=== PATIENT | female | born 2000 | race Caucasian/White ===

== ENCOUNTER 2023-08-25 17:19 | Emergency (ER) | payer OTHER ==
--- NOTE | 2023-08-25 18:10 | ED ---
Abdominal Pain HPI - General Source: patient Mode of arrival: ambulatory Limitations: no limitations <Michelle Serna - Last Filed: 08/25/23 18:09> <Madelyn Soto - Last Filed: 08/25/23 23:43> - General Stated Complaint: abd pain, vomiting Time Seen by Provider: 08/25/23 18:09 - History of Present Illness Initial Comments: The patient is a 23-year-old female is otherwise healthy presents emergency room with complaints of right lower quadrant abdominal pain and fever. Denies any concern for an STD or vaginal discharge. Patient believes she has an iodine ALLERGY due to having an ALLERGIC reaction to eating excessive amounts of fish but has never had contrast dye. (Michelle Serna) 23-year-old female presenting with chief complaint of right lower quadrant pain. Patient states that this pain started yesterday, it is a dull aching pain. She states that today she started experiencing some nausea and vomiting and felt feverish. No history of abdominal surgeries. She denies any vaginal bleeding or discharge. She is sexually active and uses condoms, she does not have any concern for STDs. She states she has not been having diarrhea but she has been having bowel movements more frequently. No dysuria or hematuria. No flank pain. (Madelyn Soto) - Related Data Home Medications Medication Instructions Recorded Confirmed No Known Home Medications 06/19/15 06/19/15 Allergies Allergy/AdvReac Type Severity Reaction Status Date / Time iodine Allergy Anaphylaxis Verified 08/25/23 18:02 Review of Systems ROS Other: All systems not noted in ROS Statement are negative. <Michelle Serna - Last Filed: 08/25/23 18:09> ROS Other: All systems not noted in ROS Statement are negative. <Madelyn Soto - Last Filed: 08/25/23 23:43> ROS Statement: Those systems with pertinent positive or pertinent negative responses have been documented in the HPI. Past Medical History Past Medical History: No Reported History History of Any Multi-Drug Resistant Organisms: None Reported Past Surgical History: No Surgical Hx Reported Past Psychological History: No Psychological Hx Reported Smoking Status: Vaper Past Alcohol Use History: None Reported, Rare Past Drug Use History: None Reported, Marijuana <Michelle Serna - Last Filed: 08/25/23 18:09> General Exam Limitations: no limitations <Michelle Serna - Last Filed: 08/25/23 18:09> Limitations: no limitations General appearance: alert, in no apparent distress Head exam: Present: atraumatic, normocephalic Eye exam: Present: normal appearance Neck exam: Present: normal inspection Respiratory exam: Present: normal lung sounds bilaterally. Absent: respiratory distress, wheezes, rales, rhonchi, stridor Cardiovascular Exam: Present: regular rate, normal rhythm, normal heart sounds. Absent: systolic murmur, diastolic murmur, rubs, gallop, clicks GI/Abdominal exam: Present: soft, tenderness (Patient admitted to some pressure in the right lower quadrant, mild). Absent: distended, guarding, rebound, rigid External exam: Present: normal external exam Speculum exam: Present: normal speculum exam By manual exam: Present: normal by manual exam Neurological exam: Present: alert, oriented X3 Psychiatric exam: Present: normal affect, normal mood Skin exam: Present: warm, dry <Madelyn Soto - Last Filed: 08/25/23 23:43> - General Exam Comments Initial Comments: Visual Physical Exam Vital signs reviewed General: Well-appearing, nontoxic, no acute distress. Head: Normocephalic, atraumatic Eyes: PERRLA, EOMI ENT: Airway patent Chest: Nonlabored breathing Skin: No visual rash, normal skin tone Neuro: Alert and oriented 3 Musculoskeletal: No gross abnormalities (Michelle Serna) Course Vital Signs 08/25/23 08/25/23 17:57 22:12 Temperature 99 F Pulse Rate 86 72 Respiratory 18 16 Rate Blood Pressure 154/91 107/74 O2 Sat by Pulse 98 100 Oximetry Medical Decision Making <Michelle Serna - Last Filed: 08/25/23 18:09> - Lab Data Result diagrams: 08/25/23 19:08 08/25/23 19:08 <Madelyn Soto - Last Filed: 08/25/23 23:43> - Medical Decision Making Quick note portion completed by myself, electronically signed Michelle Serna PAC (Michelle Serna) Was pt. sent in by a medical professional or institution (, PA, MECHANICAL PIPING DESIGNER, urgent care, hospital, or [facility]...) When possible be specific @ -No Did you speak to anyone other than the patient for history (EMS, parent, family, police, friend...)? What history was obtained from this source @ -No Did you review nursing and triage notes (agree or disagree)? Why? @ -I reviewed and agree with nursing and triage notes Were old charts reviewed (outside hosp., previous admission, EMS record, old EKG, old radiological studies, urgent care reports/EKG's, [facility] records)? Report findings @ -No old charts were reviewed Differential Diagnosis (chest pain, altered mental status, abdominal pain women, abdominal pain men, vaginal bleeding, weakness, fever, dyspnea, syncope, headache, dizziness, GI bleed, back pain, seizure, CVA, palpatations, mental health, musculoskeletal)? @ -MDM Differential Abdominal Pain Women: Appendicitis, Cholecystitis, diverticulosis, ischemic bowel, pancreatitis, hepatitis, UTI, gastroenteritis, AAA, incarcerated hernia, bowel obstruction, constipation, inflammatory bowel, hepatitis, peptic ulcer disease, splenic infarction, perforated viscus, vulvitis, ovarian torsion, PID, kidney stone, placenta abruption... This is not meant to be an all-inclusive list EKG interpreted by me (3pts min.). @ -As above X-rays interpreted by me (1pt min.). @ -None done CT interpreted by me (1pt min.). @ -CT shows prominent size of the right ovary, given the appendix is normal in there is no obstructive uropathy consider dedicated pelvic transvaginal ultrasound U/S interpreted by me (1pt. min.). @ -Ultrasound shows satisfactory blood flow to right ovary is identified. Small amount of free fluid in the pelvic cul-de-sac redemonstrated which is nonspecific. No acute findings otherwise are seen What testing was considered but not performed or refused? (CT, X-rays, U/S, lab s)? Why? @ -None What meds were considered but not given or refused? Why? @ -None Did you discuss the management of the patient with other professionals (professionals i.e. , PA, MECHANICAL PIPING DESIGNER, lab, RT, psych nurse, social work associate, health program manager, teacher, supply requirements officer, case coordinator)? Give summary @ -No Was smoking cessation discussed for >3mins.? @ -No Was critical care preformed (if so, how long)? @ -No Were there social determinants of health that impacted care today? How? (Homelessness, low income, unemployed, alcoholism, drug addiction, transportation, low edu. Level, literacy, decrease access to med. care, half-way, rehab)? @ -No Was there de-escalation of care discussed even if they declined (Discuss DNR or withdrawal of care, Hospice)? DNR status @ -No What co-morbidities impacted this encounter? (DM, HTN, Smoking, COPD, CAD, Cancer, CVA, ARF, Chemo, Hep., AIDS, mental health diagnosis, sleep apnea, morbid obesity)? @ -None Was patient admitted / discharged? Hospital course, mention meds given and route, prescriptions, significant lab abnormalities, going to OR and other pertinent info. @ -23-year-old female presenting with chief complaint of right lower quadrant pain that started yesterday. Patient started having nausea vomiting and subjective fever today. Workup is initiated by triage. WBC 15.1. hCG quantitative less than 2.4. Urine shows no infectious process or bleeding. She is negative for influenza, RSV, and COVID. Patient is later brought back to a room with a history and physical exam are conducted. She has mild pressure to the right lower quadrant, otherwise abdominal exam is unremarkable. Normal speculum and bimanual exam. CT abdomen and pelvis shows no appendicitis or obstructive uropathy, the right ovary does appear larger than the left. Ultrasound was obtained which shows no evidence of torsion or other acute process. Right ovary still appears larger than the left. On reassessment patient is resting comfortably. Throughout her course in the ED I offered pain and nausea medication and multiple occasions, however the patient states that her symptoms were minor and did not want any medication. She is educated on today's findings. She is instructed to follow-up with BLEACH MACHINE OPERATOR. Discharged home. Follow-up with PCP. Report back to ER with any new or worsening symptoms. Discussed return parameters and answered all questions. Patient conveyed verbal understanding and agreed to the plan. I discussed this case in detail with my attending Dr. Esposito Undiagnosed new problem with uncertain prognosis? @ -No Drug Therapy requiring intensive monitoring for toxicity (Heparin, Nitro, Insulin, Cardizem)? @ -No Were any procedures done? @ -No Diagnosis/symptom? @ -Pelvic pain Acute, or Chronic, or Acute on Chronic? @ -Acute Uncomplicated (without systemic symptoms) or Complicated (systemic symptoms)? @ -Uncomplicated Side effects of treatment? @ -No Exacerbation, Progression, or Severe Exacerbation? @ -No Poses a threat to life or bodily function? How? (Chest pain, USA, MA, pneumonia, PE, COPD, DKA, ARF, appy, cholecystitis, CVA, Diverticulitis, Homicidal, Suicidal, threat to staff... and all critical care pts) @ -Unlikely (Madelyn Soto) - Lab Data Lab Results 08/25/23 08/25/23 08/25/23 Range/Units 19:08 19:08 19:08 WBC 15.1 H (3.8-10.6) k/uL RBC 4.76 (3.80-5.40) m/uL Hgb 15.0 (11.4-16.0) gm/dL Hct 43.0 (34.0-46.0) % MCV 90.3 (80.0-100.0) fL MCH 31.6 (25.0-35.0) pg MCHC 35.0 (31.0-37.0) g/dL RDW 12.0 (11.5-15.5) % Plt Count 313 (150-450) k/uL MPV 8.0 Neutrophils % 76 % Lymphocytes % 16 % Monocytes % 6 % Eosinophils % 1 % Basophils % 0 % Neutrophils # 11.5 H (1.3-7.7) k/uL Lymphocytes # 2.4 (1.0-4.8) k/uL Monocytes # 0.9 (0-1.0) k/uL Eosinophils # 0.1 (0-0.7) k/uL Basophils # 0.1 (0-0.2) k/uL Sodium 139 (137-145) mmol/L Potassium 3.6 (3.5-5.1) mmol/L Chloride 109 H (98-107) mmol/L Carbon Dioxide 21 L (22-30) mmol/L Anion Gap 9 mmol/L BUN 11 (7-17) mg/dL Creatinine 0.60 (0.52-1.04) mg/dL Est GFR (CKD-EPI)AfAm >90 (>60 ml/min/1.73 sqM) Est GFR (CKD-EPI)NonAf >90 (>60 ml/min/1.73 sqM) Glucose 97 (74-99) mg/dL Calcium 9.9 (8.4-10.2) mg/dL Total Bilirubin 0.8 (0.2-1.3) mg/dL AST 25 (14-36) U/L ALT 14 (4-34) U/L Alkaline Phosphatase 75 (38-126) U/L Total Protein 7.3 (6.3-8.2) g/dL Albumin 4.5 (3.5-5.0) g/dL Lipase 174 (23-300) U/L HCG, Quant <2.4 mIU/mL Urine Color Urine Appearance (Clear) Urine pH (5.0-8.0) Ur Specific [place] (1.001-1.035) Urine Protein (Negative) Urine Glucose (UA) (Negative) Urine Ketones (Negative) Urine Blood (Negative) Urine Nitrite (Negative) Urine Bilirubin (Negative) Urine Urobilinogen (<2.0) mg/dL Ur Leukocyte Esterase (Negative) Influenza Type A (PCR) Not Detected (Not Detectd) Influenza Type B (PCR) Not Detected (Not Detectd) RSV (PCR) Not Detected (Not Detectd) SARS-CoV-2 (PCR) Not Detected (Not Detectd) 08/25/23 Range/Units 19:16 WBC (3.8-10.6) k/uL RBC (3.80-5.40) m/uL Hgb (11.4-16.0) gm/dL Hct (34.0-46.0) % MCV (80.0-100.0) fL MCH (25.0-35.0) pg MCHC (31.0-37.0) g/dL RDW (11.5-15.5) % Plt Count (150-450) k/uL MPV Neutrophils % % Lymphocytes % % Monocytes % % Eosinophils % % Basophils % % Neutrophils # (1.3-7.7) k/uL Lymphocytes # (1.0-4.8) k/uL Monocytes # (0-1.0) k/uL Eosinophils # (0-0.7) k/uL Basophils # (0-0.2) k/uL Sodium (137-145) mmol/L Potassium (3.5-5.1) mmol/L Chloride (98-107) mmol/L Carbon Dioxide (22-30) mmol/L Anion Gap mmol/L BUN (7-17) mg/dL Creatinine (0.52-1.04) mg/dL Est GFR (CKD-EPI)AfAm (>60 ml/min/1.73 sqM) Est GFR (CKD-EPI)NonAf (>60 ml/min/1.73 sqM) Glucose (74-99) mg/dL Calcium (8.4-10.2) mg/dL Total Bilirubin (0.2-1.3) mg/dL AST (14-36) U/L ALT (4-34) U/L Alkaline Phosphatase (38-126) U/L Total Protein (6.3-8.2) g/dL Albumin (3.5-5.0) g/dL Lipase (23-300) U/L HCG, Quant mIU/mL Urine Color Colorless Urine Appearance Clear (Clear) Urine pH 6.0 (5.0-8.0) Ur Specific [place] 1.011 (1.001-1.035) Urine Protein Negative (Negative) Urine Glucose (UA) Negative (Negative) Urine Ketones Negative (Negative) Urine Blood Negative (Negative) Urine Nitrite Negative (Negative) Urine Bilirubin Negative (Negative) Urine Urobilinogen <2.0 (<2.0) mg/dL Ur Leukocyte Esterase Negative (Negative) Influenza Type A (PCR) (Not Detectd) Influenza Type B (PCR) (Not Detectd) RSV (PCR) (Not Detectd) SARS-CoV-2 (PCR) (Not Detectd) Disposition <Michelle Serna - Last Filed: 08/25/23 18:09> Is patient prescribed a controlled substance at d/c from ED?: No Time of Disposition: 23:13 <Madelyn Soto - Last Filed: 08/25/23 23:43> Clinical Impression: Pelvic pain Disposition: HOME SELF-CARE Condition: Good Instructions (If sedation given, give patient instructions): Pelvic Pain in Women (ED) Additional Instructions: Follow-up with BLEACH MACHINE OPERATOR. Report back to ER with any new or worsening symptoms. Referrals: Miguel Busby MD [Primary Care Provider] - 1-2 days Clari Schwartz DO [Doctor of Osteopathic Medicine] - 1-2 days
[2023-08-25 19:22] LABS: Basophils # (A) 0.1 k/uL (0-0.2); Basophils % (A) 0 %; Eosinophils # (A) 0.1 k/uL (0-0.7); Eosinophils % (A) 1 %; Lymphocytes # (A) 2.4 k/uL (1.0-4.8); Lymphocytes % (A) 16 %; MCH 31.6 pg (25.0-35.0); MCV 90.3 fL (80.0-100.0); Monocytes # (A) 0.9 k/uL (0-1.0); Monocytes % (A) 6 %; Neutrophils # (A) 11.5 k/uL (1.3-7.7); Neutrophils % (A) 76 %; Platelet Count 313 k/uL (150-450); RBC 4.76 m/uL (3.80-5.40); WBC 15.1 k/uL (3.8-10.6)
[2023-08-25 19:35] LABS: Appearance,Urine Clear (Clear); Bilirubin,Urine Negative (Negative); Blood,Urine Negative (Negative); Color,Urine Colorless; Glucose,Urine (UA) Negative (Negative); Ketones,Urine Negative (Negative); Leukocyte Esterase,Urine Negative (Negative); Nitrite,Urine Negative (Negative); Protein,Urine Negative (Negative); Specific Gravity,Urine 1.011 (1.001-1.035); Urobilinogen,Urine <2.0 mg/dL (<2.0)
[2023-08-25 19:48] LABS: ALT 14 U/L (4-34); AST 25 U/L (14-36); African American GFR (CKD) >90 (>60 ml/min/1.73 sqM); Albumin 4.5 g/dL (3.5-5.0); Alkaline Phosphatase 75 U/L (38-126); Anion Gap 9 mmol/L; Blood Urea Nitrogen 11 mg/dL (7-17); Calcium 9.9 mg/dL (8.4-10.2); Carbon Dioxide 21 mmol/L (22-30); Chloride 109 mmol/L (98-107); Glucose 97 mg/dL (74-99); Lipase 174 U/L (23-300); Non-African American GFR(CKD) >90 (>60 ml/min/1.73 sqM); Potassium 3.6 mmol/L (3.5-5.1); Sodium 139 mmol/L (137-145); Total Bilirubin 0.8 mg/dL (0.2-1.3); Total Protein 7.3 g/dL (6.3-8.2)
[2023-08-25 20:15] LABS: HCG,Quantitative Serum <2.4 mIU/mL
[2023-08-25] MEDS: SODIUM CHLORIDE 0.9% 1,000 ML IV ONE (20:53)
[2023-08-25] MEDS: methylPREDNISolone SOD SUCCI 125 MG/2 ML VIAL IV ONE (20:53)
[2023-08-25] MEDS: FAMOTIDINE 20 MG/2 ML VIAL IV STA (20:54)
[2023-08-25] MEDS: diphenhydrAMINE 50 MG/ML 1 ML VIAL IVP STA (20:55)
--- NOTE | 2023-08-25 21:59 | CT ---
EXAMINATION TYPE: CT abdomen pelvis w con CT DLP: 483.7 mGycm, Automated exposure control for dose reduction was used. DATE OF EXAM: 08/25/2023 9:26 PM COMPARISON: None CLINICAL INDICATION:Female, 23 years old with history of RLQ pain; RLQ abdominal pain x 1 day TECHNIQUE: Axial CT abdomen pelvis w con;Sagittal and coronal reformats were created on a separate w orkstation. Contrast used:100ml mL of Isovue 300 with IV Contrast, (none if empty) Oral contrast used: without Oral Contrast (none if empty) FINDINGS: LOWER CHEST: Unremarkable ABDOMEN LIVER: Unremarkable GALLBLADDER AND BILE DUCTS: Unremarkable. PANCREAS: Unremarkable. SPLEEN: Unremarkable. ADRENAL GLANDS: Unremarkable. KIDNEYS AND URETERS: No evidence of hydronephrosis or renal calculus. The ureters are unremarkable. PELVIS BLADDER: Unremarkable REPRODUCTIVE: Arcuate morphology to the endometrium suggested.r the right ovary appears larger compar ed to the left. What is thought to represent the right ovary appears prominent in size. ABDOMEN & PELVIS STOMACH AND BOWEL: No evidence of bowel obstruction. The appendix is visualized and normal. PERITONEUM/RETROPERITONEUM: No evidence of pneumoperitoneum or free fluid. VASCULATURE: No evidence of aortic aneurysm. MUSCULOSKELETAL: No acute osseous abnormalities LYMPH NODES: No gross evidence for lymphadenopathy. SOFT TISSUE/ABDOMINAL WALL: Unremarkable IMPRESSION: Prominent size of the right ovary, given the appendix is normal and is no obstructive uropathy. Consi мария dedicated pelvic transvaginal ultrasound.
[2023-08-25 22:17] VITALS: RESP 16
--- NOTE | 2023-08-25 22:46 | US ---
EXAMINATION TYPE: US pelvic complete DATE OF EXAM: 08/25/2023 COMPARISON: CT: Today CLINICAL INDICATION: Female, 23 years old with history of R pelvic pain; R sided pelvic pain x 1 day. TECHNIQUE: . Transabdominal sonographic images of the pelvis were acquired. Pt refused transvaginal exam Date of LMP: 08/12/23 EXAM MEASUREMENTS: Uterus: 7.2 x 5.2 x 3.8 cm Endometrial Stripe: 0.9 cm Right Ovary: 4.3 x 3.5 x 3.0 cm Left Ovary: 2.7 x 2.3 x 2.0 cm 1. Uterus: Anteverted wnl 2. Endometrium: wnl 3. Right Ovary: Appears larger than the left ovary, however still has good blood flow and no obvious mass. Slightly limited due to bowel gas 4. Left Ovary: wnl Spectral, color and waveform doppler imaging shows good arterial and venous flow within the ovaries ; 5. Bilateral Adnexa: wnl 6. Posterior cul-de-sac: Free fluid seen IMPRESSION: Satisfactory blood flow to right ovary is identified. Small amount of free fluid in pelvi c cul-de-sac redemonstrated which is nonspecific. No acute findings otherwise are seen.
[2023-08-26 00:14] VITALS: BP 111/73; PULSE 74; TEMP 98.4
== END 2023-08-25 23:56 | disposition home or self-care (01) ==
LOC: EC 17:19
DX: R10.31 Right lower quadrant pain (principal); F17.290 Nicotine dependence, other tobacco product, uncomplicated; Z91.041 Radiographic dye allergy status; Z20.822 Contact with and (suspected) exposure to COVID-19
CPT/HCPCS: 36415; 80053; 83690; 85025; 81003; 84702; 87636; 93975; 76856; 74177; 99284; 96374; 96375 ×2; 96361; J1200; J2930; J3490; Q9967

== ENCOUNTER → 2024-03-01 | Outpatient (CLI) | payer OTHER ==
--- NOTE | 2024-03-01 14:56 | US ---
EXAMINATION TYPE: US venous doppler duplex LE RT DATE OF EXAM: 03/01/2024 2:34 PM COMPARISON: NONE CLINICAL INDICATION: Female, 23 years old with history of R22.41 LOCALIZED SWELLING, MASS AND LUMP, R IGHT LO; right pop redness and warmth SIDE PERFORMED: Right TECHNIQUE: The lower extremity deep venous system is examined utilizing real time linear array sonog deniz with graded compression, doppler sonography and color-flow sonography. VESSELS IMAGED: Common Femoral Vein Deep Femoral Vein Greater Saphenous Vein * Femoral Vein Popliteal Vein Small Saphenous Vein * Proximal Calf Veins (* superficial vessels) Right Leg: Negative for DVT IMPRESSION: Grayscale, color doppler, spectral doppler imaging performed of the deep veins of the lo wer extremities. There is normal flow, compressibility, vascular waveforms.
== END | disposition home or self-care (01) ==
LOC: RADUSWWP 14:16
PROVIDERS: ATTEND Obstetrics & Gynecology
DX: R22.41 Localized swelling, mass and lump, right lower limb (principal); M79.661 Pain in right lower leg

== ENCOUNTER 2024-05-10 15:30 | Emergency (ER) | payer OTHER ==
[2024-05-10 15:43] VITALS: TEMP 98.2
[2024-05-10] MEDS: ONDANSETRON 4 MG/2 ML VIAL IVP STA (16:13)
--- NOTE | 2024-05-10 16:21 | ED ---
General Adult HPI - General Chief complaint: Shortness of Breath Stated complaint: SOB, chest pain, 34wks preg Time Seen by Provider: 05/10/24 15:50 Source: patient, RN notes reviewed, old records reviewed Mode of arrival: wheelchair Limitations: no limitations - History of Present Illness Initial comments: Is a 24-year-old female who is 34 weeks . Patient comes in today because she states about 40 minutes prior to arrival started having bilateral shoulder pain. Even though the triage note says left-sided patient states states equally both sides and both shoulders. Patient states she then started having some tingling in both of her fingers. Patient states She then started to experience some mild back pain and now she has some weird feeling in her chest. States the symptoms in the shoulder and back appear to be worsened with movement or taking a deep breath. But it is not pain. Patient states she also short of breath a little. Patient denies any injury or trauma. Patient has any swelling to the legs or calf tenderness. Patient also states she feels weak in her legs as well. Patient states she is feeling movement of her baby but not as much as she has in the past. Patient states she has multiple family members with blood clots. Plan. - Related Data Home Medications Medication Instructions Recorded Confirmed Ferrous Sulfate [Feosol] 325 mg PO W/SUPPER 05/10/24 05/10/24 Omeprazole 20 mg PO DAILY 05/10/24 05/10/24 Bpl-Odjn-Czcmm Acid 1 cap PO DAILY 05/10/24 05/10/24 [-U Capsule (formulary)] Allergies Allergy/AdvReac Type Severity Reaction Status Date / Time iodine Allergy Anaphylaxis Verified 05/10/24 16:31 Review of Systems ROS Statement: Those systems with pertinent positive or pertinent negative responses have been documented in the HPI. ROS Other: All systems not noted in ROS Statement are negative. Past Medical History Past Medical History: No Reported History History of Any Multi-Drug Resistant Organisms: None Reported Past Surgical History: No Surgical Hx Reported Past Psychological History: No Psychological Hx Reported Smoking Status: Vaper Past Alcohol Use History: None Reported, Rare Past Drug Use History: None Reported, Marijuana General Exam - General Exam Comments Initial Comments: GENERAL: Patient is well-developed and well-nourished. Patient is nontoxic and well- hydrated and is in mild distress. ENT: Neck is soft and supple. No significant lymphadenopathy is noted. Oropharynx is clear. Moist mucous membranes. Neck has full range of motion without elic iting any pain. EYES: The sclera were anicteric and conjunctiva were pink and moist. Extraocular movements were intact and pupils were equal round and reactive to light. Eyelids were unremarkable. PULMONARY: Unlabored respirations. Good breath sounds bilaterally. No audible rales rhonchi or wheezing was noted. CARDIOVASCULAR: There is a regular rate and rhythm without any murmurs gallops or rubs. Patient's heart rate was 95 when I listen to her ABDOMEN: abdomen SKIN: Skin is clear with no lesions or rashes and otherwise unremarkable. NEUROLOGIC: Patient is alert and oriented x3. Cranial nerves II through XII are grossly intact. Motor and sensory are also intact. Normal speech, volume and content. Symmetrical smile. MUSCULOSKELETAL: Normal extremities with adequate strength and full range of motion. No lower extremity swelling or edema. No calf tenderness. LYMPHATICS: No significant lymphadenopathy is noted PSYCHIATRIC: Patient is a very anxious. Limitations: no limitations Course Vital Signs 05/10/24 05/10/24 05/10/24 15:39 17:00 18:42 Temperature 98.2 F Pulse Rate 97 77 75 Respiratory 20 18 18 Rate Blood Pressure 144/73 130/81 118/62 O2 Sat by Pulse 98 97 99 Oximetry Medical Decision Making - Medical Decision Making EKG is interpreted by myself. EKG shows sinus tachycardia at 106 bpm WV was 120 QRS is 84 QT interval 327 QTc is 389. Patient's EKG shows some flipped T waves in 3 and aVF as well as some flipped T waves in V1 through V4. Was pt. sent in by a medical professional or institution (, PA, [facility], urgent care, hospital, or skilled nursing...) When possible be specific @ -No Did you speak to anyone other than the patient for history (EMS, parent, family, police, friend...)? What history was obtained from this source @ -No Did you review nursing and triage notes (agree or disagree)? Why? @ -I reviewed and agree with nursing and triage notes Were old charts reviewed (outside hosp., previous admission, EMS record, old EKG, old radiological studies, urgent care reports/EKG's, skilled nursing records)? Report findings @ -No old charts were reviewed Differential Diagnosis? @ -Differential Dyspnea: Coronary syndrome, arrhythmia, tamponade, asthma, COPD, pulmonary embolism, pneumonia, pneumothorax, pulmonary effusion, anaphylaxis, diabetic ketoacidosis, flailed chest, pulmonary contusion, diaphragmatic rupture, anemia, neuromuscular, this is not meant to be an all-inclusive list. EKG interpreted by me (3pts min.). @ -As above X-rays interpreted by me (1pt min.). @ -Chest x-ray shows no acute abnormality CT interpreted by me (1pt min.). @ -CT scan shows no pulmonary embolism no acute abnormality U/S interpreted by me (1pt. min.). @ -None done What testing was considered but not performed or refused? (CT, X-rays, U/S, labs)? Why? @ -None What meds were considered but not given or refused? Why? @ -None Did you discuss the management of the patient with other professionals (professionals i.e. , PA, [facility], lab, RT, psych nurse, social and political studies professor, sports lawyer, teacher, public service officer, rehabilitation case coordinator)? Give summary @ -Spoke with Dr. Rai and he did not seem concerned about the hemoglobin being 9.9 and we will follow-up the patient as an outpatient Was smoking cessation discussed for >3mins.? @ -No Was critical care preformed (if so, how long)? @ -No Were there social determinants of health that impacted care today? How? (Homelessness, low income, unemployed, alcoholism, drug addiction, transportation, low edu. Level, literacy, decrease access to med. care, nursing home, re hab)? @ -No Was there de-escalation of care discussed even if they declined (Discuss DNR or withdrawal of care, Hospice)? DNR status @ -No What co-morbidities impacted this encounter? (DM, HTN, Smoking, COPD, CAD, Cancer, CVA, ARF, Chemo, Hep., AIDS, mental health diagnosis, sleep apnea, morbid obesity)? @ -None Was patient admitted / discharged? Hospital course, mention meds given and route, prescriptions, significant lab abnormalities, going to OR and other pertinent info. @ -Patient states that the discomfort she had in her shoulders and back seems to be motion use. Patient states if she moves twists or takes a deep breath it seems to cause the pain. Patient states that she feels much better now than she did when she came in. CT scan was ordered because the patient has EKG findings of right heart strain but no old EKG is there to compare to. Lab work showed hemoglobin 9.[address] scan showed no pulmonary embolism. Patient will follow-up as an outpatient and is told to return if there are any new or worsening symptoms. Patient oxygenation was in the high 90s throughout her visit. Undiagnosed new problem with uncertain prognosis? @ -No Drug Therapy requiring intensive monitoring for toxicity (Heparin, Nitro, Insulin, Cardizem)? @ -No Were any procedures done? @ -No Diagnosis/symptom? @ -Back and shoulder pain Acute, or Chronic, or Acute on Chronic? @ -Acute Uncomplicated (without systemic symptoms) or Complicated (systemic symptoms)? @ -Complicated Side effects of treatment? @ -No Exacerbation, Progression, or Severe Exacerbation? @ -No Poses a threat to life or bodily function? How? (Chest pain, USA, NC, pneumonia, PE, COPD, DKA, ARF, appy, cholecystitis, CVA, Diverticulitis, Homicidal, Suicidal, threat to staff... and all critical care pts) @ -No - Lab Data Result diagrams: 05/10/24 16:16 05/10/24 16:16 Lab Results 05/10/24 05/10/24 05/10/24 Range/Units 16:16 16:16 16:16 WBC 11.8 H (3.8-10.6) k/uL RBC 3.69 L (3.80-5.40) m/uL Hgb 9.9 L (11.4-16.0) gm/dL Hct 29.9 L (34.0-46.0) % MCV 81.2 (80.0-100.0) fL MCH 26.8 (25.0-35.0) pg MCHC 33.0 (31.0-37.0) g/dL RDW 14.8 (11.5-15.5) % Plt Count 188 (150-450) k/uL MPV 9.4 Neutrophils % 74 % Lymphocytes % 17 % Monocytes % 6 % Eosinophils % 1 % Basophils % 0 % Neutrophils # 8.7 H (1.3-7.7) k/uL Lymphocytes # 2.0 (1.0-4.8) k/uL Monocytes # 0.7 (0-1.0) k/uL Eosinophils # 0.1 (0-0.7) k/uL Basophils # 0.0 (0-0.2) k/uL Hypochromasia Moderate Poikilocytosis Slight D-Dimer 1.56 H (<0.60) mg/L FEU Sodium 135 L (137-145) mmol/L Potassium 3.5 (3.5-5.1) mmol/L Chloride 112 H (98-107) mmol/L Carbon Dioxide 14 L (22-30) mmol/L Anion Gap 9 mmol/L BUN 3 L (7-17) mg/dL Creatinine 0.44 L (0.52-1.04) mg/dL Est GFR (CKD-EPI)AfAm >90 (>60 ml/min/1.73 sqM) Est GFR (CKD-EPI)NonAf >90 (>60 ml/min/1.73 sqM) Glucose 115 H (74-99) mg/dL Plasma Lactic Acid Kennedy (0.7-2.0) mmol/L Calcium 8.5 (8.4-10.2) mg/dL Magnesium 1.6 (1.6-2.3) mg/dL Total Bilirubin 0.7 (0.2-1.3) mg/dL AST 24 (14-36) U/L ALT 16 (4-34) U/L Alkaline Phosphatase 204 H (38-126) U/L Troponin I (0.000-0.034) ng/mL Total Protein 6.0 L (6.3-8.2) g/dL Albumin 3.2 L (3.5-5.0) g/dL 05/10/24 05/10/24 Range/Units 16:16 16:16 WBC (3.8-10.6) k/uL RBC (3.80-5.40) m/uL Hgb (11.4-16.0) gm/dL Hct (34.0-46.0) % MCV (80.0-100.0) fL MCH (25.0-35.0) pg MCHC (31.0-37.0) g/dL RDW (11.5-15.5) % Plt Count (150-450) k/uL MPV Neutrophils % % Lymphocytes % % Monocytes % % Eosinophils % % Basophils % % Neutrophils # (1.3-7.7) k/uL Lymphocytes # (1.0-4.8) k/uL Monocytes # (0-1.0) k/uL Eosinophils # (0-0.7) k/uL Basophils # (0-0.2) k/uL Hypochromasia Poikilocytosis D-Dimer (<0.60) mg/L FEU Sodium (137-145) mmol/L Potassium (3.5-5.1) mmol/L Chloride (98-107) mmol/L Carbon Dioxide (22-30) mmol/L Anion Gap mmol/L BUN (7-17) mg/dL Creatinine (0.52-1.04) mg/dL Est GFR (CKD-EPI)AfAm (>60 ml/min/1.73 sqM) Est GFR (CKD-EPI)NonAf (>60 ml/min/1.73 sqM) Glucose (74-99) mg/dL Plasma Lactic Acid Kennedy 1.5 (0.7-2.0) mmol/L Calcium (8.4-10.2) mg/dL Magnesium (1.6-2.3) mg/dL Total Bilirubin (0.2-1.3) mg/dL AST (14-36) U/L ALT (4-34) U/L Alkaline Phosphatase (38-126) U/L Troponin I <0.012 (0.000-0.034) ng/mL Total Protein (6.3-8.2) g/dL Albumin (3.5-5.0) g/dL Disposition Clinical Impression: Dyspnea, Musculoskeletal pain Disposition: HOME SELF-CARE Condition: Good Instructions (If sedation given, give patient instructions): Musculoskeletal Pain (ED) Additional Instructions: Patient should return for any new or worsening symptoms. Is patient prescribed a controlled substance at d/c from ED?: No Referrals: None,Stated [Primary Care Provider] - 1-2 days Derick Rai MD [STAFF PHYSICIAN] - 1-2 days Time of Disposition: 20:13
[2024-05-10 16:28] LABS: Basophils % (A) 0 %; Eosinophils # (A) 0.1 k/uL (0-0.7); Eosinophils % (A) 1 %; HCT 29.9 % (34.0-46.0); HGB 9.9 gm/dL (11.4-16.0); Hypochromasia Moderate; Lymphocytes % (A) 17 %; MCH 26.8 pg (25.0-35.0); MCV 81.2 fL (80.0-100.0); Mean Platelet Volume 9.4; Monocytes # (A) 0.7 k/uL (0-1.0); Monocytes % (A) 6 %; Neutrophils # (A) 8.7 k/uL (1.3-7.7); Neutrophils % (A) 74 %; Platelet Count 188 k/uL (150-450); Poikilocytosis Slight; RBC 3.69 m/uL (3.80-5.40); RDW 14.8 % (11.5-15.5); WBC 11.8 k/uL (3.8-10.6)
--- NOTE | 2024-05-10 16:41 | XR ---
EXAMINATION TYPE: XR chest 2V DATE OF EXAM: 05/10/2024 4:37 PM COMPARISON: Chest radiographs from 05/10/2024. CLINICAL INDICATION: Female, 24 years old with history of difficulty breathing; [facility] TECHNIQUE: XR chest 2V Frontal and lateral views of the chest. FINDINGS: Lungs/Pleura: There is no evidence of pleural effusion, focal consolidation, or pneumothorax. Pulmonary vascularity: Unremarkable. Heart/mediastinum: Cardiomediastinal silhouette is unremarkable. Musculoskeletal: No acute osseous pathology. IMPRESSION: No acute cardiopulmonary disease/process. [facility], , 05/10/2024 4:39 PM
[2024-05-10 16:43] LABS: ALT 16 U/L (4-34); AST 24 U/L (14-36); African American GFR (CKD) >90 (>60 ml/min/1.73 sqM); Albumin 3.2 g/dL (3.5-5.0); Alkaline Phosphatase 204 U/L (38-126); Anion Gap 9 mmol/L; Blood Urea Nitrogen 3 mg/dL (7-17); Calcium 8.5 mg/dL (8.4-10.2); Carbon Dioxide 14 mmol/L (22-30); Chloride 112 mmol/L (98-107); Glucose 115 mg/dL (74-99); Magnesium 1.6 mg/dL (1.6-2.3); Non-African American GFR(CKD) >90 (>60 ml/min/1.73 sqM); Potassium 3.5 mmol/L (3.5-5.1); Sodium 135 mmol/L (137-145); Total Bilirubin 0.7 mg/dL (0.2-1.3)
[2024-05-10] MEDS: methylPREDNISolone SOD SUCCI 125 MG/2 ML VIAL IV STA (16:56)
[2024-05-10] MEDS: FAMOTIDINE 20 MG/2 ML VIAL IV STA (16:56)
[2024-05-10] MEDS: diphenhydrAMINE 50 MG/ML 1 ML VIAL IVP STA (16:56)
[2024-05-10 17:43] VITALS: RESP 18
--- NOTE | 2024-05-10 17:52 | CT ---
EXAMINATION TYPE: CT chest angio for PE DATE OF EXAM: 05/10/2024 5:29 PM COMPARISON: Chest radiograph same day. CLINICAL INDICATION: Female, 24 years old with history of D-dimer, dyspnea and chest pain; D-dimer, d yspnea and chest pain TECHNIQUE/CONTRAST: CTA scan of the thorax is performed with IV Contrast, patient injected with 100 mL of Isovue 370, MIP images are created and reviewed these are created on a separate workstation.. CT DLP: 309.6 mGycm, Automated exposure control for dose reduction was used. FINDINGS: Pulmonary Artery: Nondiagnostic exam secondary to bolus timing.. The pulmonary artery is of normal s ize. Lungs/Pleura: No evidence of focal consolidation, pleural effusion or pneumothorax. Airway: Large airways are patent. Heart: Heart is within normal limits for size. Vasculature: No evidence of aortic aneurysm. Mediastinum: No gross evidence of adenopathy. Musculoskeletal: No acute osseous abnormalities Soft Tissues/lymph nodes: Unremarkable. Lower neck: No significant findings. Upper Abdomen: Partial visualization of gravid abdomen. IMPRESSION: 1. Nondiagnostic scan secondary to bolus timing. Consider repeat exam. 2. No evidence for acute intrathoracic process. [facility], , 05/10/2024 5:50 PM
--- NOTE | 2024-05-10 19:11 | CT ---
EXAMINATION TYPE: CT chest angio for PE DATE OF EXAM: 05/10/2024 6:31 PM COMPARISON: Chest radiograph from same day. First attempt CT CLINICAL INDICATION: Female, 24 years old with history of Elevated D-dimer, chest pain, dyspnea; SOB, elevated d-dimer, 34 weeks , repeat TECHNIQUE/CONTRAST: CTA scan of the thorax is performed with IV Contrast, patient injected with 80 mL of Isovue 370, MIP images are created and reviewed these are created on a separate workstation.. CT DLP: 240.7 mGycm, Automated exposure control for dose reduction was used. FINDINGS: Pulmonary Artery: Motion limited exam , no evidence for a filling defect within the pulmonary vascula ture to suggest acute pulmonary embolism. The pulmonary artery is of normal size. Lungs/Pleura: No evidence of focal consolidation, pleural effusion or pneumothorax. Airway: Large airways are patent. Heart: Heart is within normal limits for size. Vasculature: No evidence of aortic aneurysm. Mediastinum: No gross evidence of adenopathy. Musculoskeletal: No acute osseous abnormalities Soft Tissues/lymph nodes: Unremarkable. Lower neck: No significant findings. Upper Abdomen: No significant findings. IMPRESSION: 1. Motion limited exam, no central pulmonary embolus. O evidence of pulmonary embolism. [facility], , 05/10/2024 7:09 PM
[2024-05-10 20:17] VITALS: BP 120/67; PULSE 79
== END 2024-05-10 20:31 | disposition home or self-care (01) ==
LOC: EC 15:30
DX: O26.893 Other specified pregnancy related conditions, third trimester (principal); R06.02 Shortness of breath; O99.891 Other specified diseases and conditions complicating pregnancy; M54.9 Dorsalgia, unspecified; M25.512 Pain in left shoulder; M25.511 Pain in right shoulder; R00.0 Tachycardia, unspecified; O99.333 Smoking (tobacco) complicating pregnancy, third trimester; F17.290 Nicotine dependence, other tobacco product, uncomplicated; Z91.041 Radiographic dye allergy status; Z3A.34 34 weeks gestation of pregnancy
CPT/HCPCS: 36415; 93005; 85379; 80053; 83605; 83735; 84484; 85025; 71046; 71275; 99285; 96374; 96375 ×3; J1200; J2405; J3490; Q9967; J2919

== ENCOUNTER 2024-06-14 06:00 | Inpatient (IN) | payer OTHER ==
[2024-06-14] MEDS ORDERED: METHYLERGONOVINE 0.2 MG/ML 1 ML AMP IM PRN (06:19)
[2024-06-14] MEDS ORDERED: miSOPROStoL 200 MCG TAB PO PRN (06:19)
[2024-06-14] MEDS ORDERED: CARBOPROST TROMETHAMINE 250 MCG/ML 1 ML AMP IM PRN (06:19)
[2024-06-14] MEDS ORDERED: OXYTOCIN 10 UNIT/ML 1 ML VIAL IM PRN (06:19)
[2024-06-14] MEDS ORDERED: TRANEXAMIC 1,000 MG/100ML-NACL 1,000 MG in EMPTY BAG 1 BAG IV PRN (06:19)
[2024-06-14] MEDS ORDERED: TERBUTALINE 1 MG/ML VIAL SQ PRN (06:19)
[2024-06-14] MEDS ORDERED: miSOPROStoL 200 MCG TAB RECTAL PRN (06:19)
[2024-06-14] MEDS: LACTATED RINGERS 1,000 ML IV SCH (06:47)
[2024-06-14] MEDS: PENICILLIN G POTASSIUM 5,000,000 UNIT in DEXTROSE 5% IN WATER 100 ML IVPB STA (06:48)
[2024-06-14] MEDS: OXYTOCIN 30 UNITS/500 ML NS 30 UNIT in SALINE 1 500ML.BAG IV SCH (06:55)
[2024-06-14 07:01] LABS: Anisocytosis Slight; Basophils # (A) 0.1 k/uL (0-0.2); Basophils % (A) 1 %; Eosinophils # (A) 0.2 k/uL (0-0.7); Eosinophils % (A) 2 %; HCT 30.5 % (34.0-46.0); HGB 9.5 gm/dL (11.4-16.0); Hypochromasia Marked; Lymphocytes # (A) 2.3 k/uL (1.0-4.8); Lymphocytes % (A) 26 %; MCH 24.6 pg (25.0-35.0); MCHC 31.2 g/dL (31.0-37.0); MCV 78.8 fL (80.0-100.0); Mean Platelet Volume 10.8; Microcytosis Slight; Monocytes # (A) 0.6 k/uL (0-1.0); Monocytes % (A) 7 %; Neutrophils # (A) 5.8 k/uL (1.3-7.7); Neutrophils % (A) 63 %; Platelet Count 204 k/uL (150-450); RBC 3.88 m/uL (3.80-5.40); RDW 16.5 % (11.5-15.5); WBC 9.2 k/uL (3.8-10.6)
[2024-06-14] MEDS ORDERED: BUTORPHANOL 1 MG/ML 1 ML VIAL IV PRN (08:25)
--- NOTE | 2024-06-14 08:29 | P.HPOB ---
History of Present Illness H&P Date: 06/14/24 Chief Complaint: 39+ weeks, induction The patient is a 24-year-old 3 para 0 who was admitted at 39+ weeks as established by last menstrual period and confirmed by 7-week ultrasound. She is admitted for elective induction of labor with all signs reassuring, category 1 heart rate tracing. Her has been essentially uncomplicated though she was found to have a large for gestational age fetus growing at approximately the 99th percentile at 36 weeks. Group B strep status is positive. Obstetrical history: 3 para 0 with current statistics listed in history of present illness. EDC of 06/17/2024 was established by last menstrual period and confirmed by 7-week ultrasound. Laboratory workup demonstrates a blood type of A+ with a negative antibody screen. Rubella status is immune. The remainder of the laboratory workup was within normal limits. 1 hour Glucola was normal and group B strep status is positive. Gynecologic history: Unremarkable with no history of any infections to include STDs. Review of Systems Review of systems is confined to history of present illness. Past Medical History Past Medical History: No Reported History History of Any Multi-Drug Resistant Organisms: None Reported Past Surgical History: No Surgical Hx Reported Past Anesthesia/Blood Transfusion Reactions: No Reported Reaction Past Psychological History: No Psychological Hx Reported Smoking Status: Never smoker Past Alcohol Use History: None Reported, Rare Past Drug Use History: None Reported Medications and Allergies Home Medications Medication Instructions Recorded Confirmed Type Ferrous Sulfate [Feosol] 325 mg PO W/SUPPER 05/10/24 05/10/24 History Yys-Olrc-Uhihc Acid 1 cap PO DAILY 05/10/24 05/10/24 History [-U Capsule (formulary)] Allergies Allergy/AdvReac Type Severity Reaction Status Date / Time iodine Allergy Anaphylaxis Verified 06/14/24 06:18 Exam Intake and Output 06/13/24 06/14/24 06/14/24 22:59 06:59 14:59 Other: Weight 81.647 kg In general, this is a well-developed, well-nourished white female in no acute distress. Her heart has a regular rhythm and rate without murmur. Her lungs are clear to auscultation bilaterally in all cortes. Her abdomen is gravid, nondistended, has normal active bowel sounds, soft, nontender, and without any palpable masses aside from uterine fundus. Her extremities are without any cyanosis, clubbing, or edema and are nontender to palpation bilaterally. Digital cervical examination demonstrates her cervix to be 2+ centimeters dilated, 50% effaced, the vertex and presentation at -2-3 station. Artificial rupture of membranes is carried out demonstrating clear fluid. Results Result Diagrams: 06/14/24 06:38 Abnormal Lab Results - Last 24 Hours (Table) 06/14/24 Range/Units 06:38 Hgb 9.5 L (11.4-16.0) gm/dL Hct 30.5 L (34.0-46.0) % MCV 78.8 L (80.0-100.0) fL MCH 24.6 L (25.0-35.0) pg RDW 16.5 H (11.5-15.5) % Assessment and Plan (1) Term Current Visit: Yes Status: Acute Code(s): Z34.90 - ENCNTR FOR SUPRVSN OF NORMAL , UNSP, UNSP TRIMESTER SNOMED Code(s): 24867824 (2) Large for gestational age fetus Current Visit: Yes Status: Acute Code(s): AHN2550 - SNOMED Code(s): 18848 6008 (3) Group B streptococcal carriage complicating Current Visit: Yes Status: Acute Code(s): O99.820 - STREPTOCOCCUS B CARRIER STATE COMPLICATING SNOMED Code(s): 116404467384474 Plan: Patient has been admitted for elective induction of labor. Pitocin has been started and she has undergone artificial rupture of membranes. Antibiotic prophylaxis has been started for group B strep. She will have close maternal and surveillance and expectant management will be practiced. She is a good candidate for either IV or epidural analgesia, chart she may choose.
[2024-06-14] MEDS: PENICILLIN G POTASSIUM 2,500,000 UNIT in DEXTROSE 5% IN WATER 100 ML IVPB SCH (10:23)
[2024-06-14] MEDS: BENZOCAINE/MENTHOL SPRAY 1 GM/SPRAY AEROSOL TOPICAL PRN (19:55)
[2024-06-14] MEDS: LIDOCAINE 0.5% (PF) 5 MG/ML (50 ML SDV) SQ PRN (19:55)
[2024-06-14] MEDS ORDERED: diphenhydrAMINE 50 MG CAP PO PRN (20:14)
[2024-06-14] MEDS ORDERED: diphenhydrAMINE 25 MG CAP PO PRN (20:14)
[2024-06-14] MEDS ORDERED: HYDROCORTISONE 2.5% RECTAL CREAM 30 GM TUBE RECTAL PRN (20:14)
[2024-06-14] MEDS ORDERED: ZOLPIDEM 5 MG TAB PO PRN (20:14)
[2024-06-14] MEDS ORDERED: SIMETHICONE 80 MG CHEWABLE PO PRN (20:14)
[2024-06-14] MEDS ORDERED: diphenhydrAMINE 50 MG/ML 1 ML VIAL IVP PRN ×2 (20:14)
[2024-06-14] MEDS ORDERED: LANOLIN CREAM 1 GM TUBE TOPICAL PRN (20:14)
[2024-06-14] MEDS ORDERED: OXYTOCIN 30 UNITS/500 ML NS 30 UNIT in SALINE 1 500ML.BAG IV SCH (20:15)
--- NOTE | 2024-06-14 20:20 | P.PROBDLV ---
Vaginal Delivery Note - . Vaginal Delivery Note: The patient is a 24-year-old 3 para 0 admitted at 39-4/7 weeks by good dating parameters. She is admitted for elective induction of labor with a suspected macrosomic fetus. Her was otherwise essentially uncomplicated and group B strep status was positive. On labor and delivery, all signs are reassuring with a category 1 heart rate tracing. She had antibiotic prophylaxis started as well as Pitocin augmentation. She underwent artificial rupture of membranes for clear fluid. She made progress to the active phase of labor and had an epidural catheter placed for analgesia. She then progressed very steadily through the active phase of labor to complete and 0 to +1 station. She pushed over the course of approximately 1 hour to a normal spontaneous vaginal delivery of a viable 10 pound 2 ounce baby boy with Apgars of 8 at 1 minute and 9 at 5 minutes delivered in the right occiput anterior position. There was a moderate to significant shoulder dystocia which was ultimately reduced with Salena position and suprapubic pressure. Time from delivery of head to delivery of the was approximately 1-1/2 to 2 minutes. There was a nuchal cord x 1 which was reduced on the perineum. A second-degree midline perineal episiotomy had been cut for the delivery. The placenta was delivered spontaneously, intact, and grossly normal though it was very large and calcified. There was a grossly normal centrally inserted three- vessel cord. There was no extension of the second-degree episiotomy and it was repaired in standard fashion using 3-0 chromic catgut without difficulty. Estimated blood loss for the case was approximately 250 mL. There were no complications aside from the shoulder dystocia which was ultimately reduced as noted above. All sponge, instrument, and needle counts were correct. Both mother and are resting comfortably in recovery. Time there is no evidence of Erbs palsy or a clavicular fracture. The is moving both arms readily.
[2024-06-14] MEDS: IBUPROFEN 800 MG TAB PO PRN (20:55)
[2024-06-15] MEDS: ACETAMINOPHEN TAB 500 MG TAB PO PRN (00:50)
[2024-06-15 06:58] LABS: Anisocytosis Slight; Basophils % (A) 0 %; Eosinophils # (A) 0.1 k/uL (0-0.7); Eosinophils % (A) 1 %; HCT 27.5 % (34.0-46.0); HGB 8.6 gm/dL (11.4-16.0); Hypochromasia Marked; Lymphocytes % (A) 16 %; MCH 24.9 pg (25.0-35.0); MCHC 31.3 g/dL (31.0-37.0); MCV 79.6 fL (80.0-100.0); Mean Platelet Volume 10.2; Microcytosis Slight; Monocytes # (A) 0.8 k/uL (0-1.0); Monocytes % (A) 7 %; Neutrophils # (A) 8.9 k/uL (1.3-7.7); Neutrophils % (A) 74 %; Platelet Count 201 k/uL (150-450); RBC 3.46 m/uL (3.80-5.40); RDW 16.7 % (11.5-15.5); WBC 12.1 k/uL (3.8-10.6)
[2024-06-15] MEDS: SENNOSIDES-DOCUSATE SODIUM 1 EACH TAB PO SCH (08:15)
--- NOTE | 2024-06-15 08:49 | P.DS ---
Providers Date of admission: 06/14/24 06:09 Expected date of discharge: 06/15/24 Attending physician: Derick Rai Primary care physician: Stated None - Discharge Diagnosis(es) (1) Term Current Visit: Yes Status: Acute (2) Large for gestational age fetus Current Visit: Yes Status: Acute (3) Group B streptococcal carriage complicating Current Visit: Yes Status: Acute (4) Normal spontaneous vaginal delivery Current Visit: Yes Status: Acute (5) Shoulder dystocia, delivered Current Visit: Yes Status: Acute Hospital Course: The patient is a 24-year-old 3 para 0 who was admitted at 39+ weeks by good dating parameters for an elective induction of labor with all signs reassuring, category 1 heart rate tracing. Her was uncomplicated though she was found to have a large for gestational age fetus growing at the 99th percentile at 36 weeks. Group B strep status is also positive. On labor delivery, she had antibiotic prophylaxis started with Pitocin augmentation. She underwent artificial rupture of membranes for clear fluid. She made progress to the active phase of labor and had an epidural catheter placed. She then progressed steadily to complete. She pushed for approximately an hour to a normal spontaneous vaginal delivery of a viable 10 pound 2 ounce baby boy with Apgars of 8 at 1 minute and 9 at 5 minutes. She did have a moderate shoulder dystocia reduced with Salena maneuver and suprapubic pressure. Her course was unremarkable with vital signs remaining stable and her temperature was afebrile throughout. She was deemed stable for discharge on day #1 was discharged home to follow-up in the office in 6 weeks time routinely. Discharge instructions included calling for any significantly increased bleeding or foul-smelling lochia, significantly increased fever or abdominal pain, perineal complaints, breast complaints, or anything else that concerned her. She was additionally instructed to have nothing in the vagina for at least 6 weeks time to include intercourse. She understood her instructions and agrees to follow-up as noted above. Discharge medications included continued vitamins as she has opted to breast- feed. She was otherwise to use [id number] analgesic pain medications as needed. Maternal blood type is a positive and rubella status is immune. Procedures: #1. Antibiotic prophylaxis #2. Pitocin induction #3. Artificial rupture of membranes #4. Epidural analgesia #5. Normal spontaneous vaginal delivery #6. Second-degree midline episiotomy and repair Patient Condition at Discharge: Stable Plan - Discharge Summary New Discharge Prescriptions: No Action [id number] Acid [-U Capsule (formulary)] 1 cap PO DAILY Ferrous Sulfate [Feosol] 325 mg PO W/SUPPER Discharge Medication List Ferrous Sulfate [Feosol] 325 mg PO W/SUPPER 05/10/24 [History] Lec-Lmvu-Ftptf Acid [-U Capsule (formulary)] 1 cap PO DAILY 05/10/24 [History] Follow up Appointment(s)/Referral(s): Derick Rai MD [STAFF PHYSICIAN] - 07/24/24 1:45 pm Discharge Disposition: HOME SELF-CARE
[2024-06-15 21:59] VITALS: BP 132/84; PULSE 69; RESP 15; TEMP 99
== END 2024-06-15 21:15 | disposition home or self-care (01) | DRG 560 ==
LOC: 4FBP 06:09
PROVIDERS: ADMIT Obstetrics & Gynecology; ATTEND Obstetrics & Gynecology
PROC: 10E0XZZ Delivery of Products of Conception, External Approach (ICD-10-PCS; principal; 2024-06-14)
PROC: 10907ZC Drainage of Amniotic Fluid, Therapeutic from Products of Conception, Via Natural or Artificial Opening (ICD-10-PCS; 2024-06-14)
PROC: 0W8NXZZ Division of Female Perineum, External Approach (ICD-10-PCS; 2024-06-14)
DX: O36.63X0 Maternal care for excessive fetal growth, third trimester, not applicable or unspecified (principal); Z3A.39 39 weeks gestation of pregnancy; Z37.0 Single live birth; O69.81X0 Labor and delivery complicated by cord around neck, without compression, not applicable or unspecified; O66.0 Obstructed labor due to shoulder dystocia; O99.824 Streptococcus B carrier state complicating childbirth
CPT/HCPCS: 85025; 86850; 86900; 86901